=== PATIENT | female | born 1950 | race Caucasian/White ===

== ENCOUNTER 2018-01-08 16:26 | Observation (INO) | payer OTHER ==
[2018-01-08 18:13] LABS: BASO # 0.01 K/mm3 (0.0-2.0); BASO % 0.2 % (0.0-3.0); EOS # 0.2 (0.0-0.7); EOS % 3.4 % (1.5-5.0); GRAN # 2.89 (1.4-6.5); GRAN % 45.3 % (50.0-68.0); HEMOGLOBIN 11.3 g/dL (12.0-16.0); LYMPH # 2.9 (1.2-3.4); LYMPH % 45.5 % (22.0-35.0); MEAN CELL VOLUME 82.5 fl (80.0-105.0); MEAN CORPUSCULAR HEMOGLOBIN 27.2 pg (25.0-35.0); MEAN CORPUSCULAR HGB CONC 32.9 g/dl (31.0-37.0); MEAN PLATELET VOLUME 9.9 fl (7.0-11.0); MONO # 0.4 (0.1-0.6); MONO % 5.6 % (1.0-6.0); RBC 4.16 10^6/uL (3.5-6.1); RED CELL DISTRIBUTION WIDTH 14.5 % (11.5-14.5); WHITE BLOOD COUNT 6.4 10^3/ul (4.5-11.0)
[2018-01-08 18:14] LABS: ALB/GLOB RATIO 1.1 (1.1-1.8); ALT/SGPT 21 U/L (7-56); AST/SGOT 32 U/L (14-36); BLOOD UREA NITROGEN 20 mg/dL (7-21); CALCIUM 9.3 mg/dL (8.4-10.5); GFR AFRICAN-AMERICAN > 60; GFR NON-AFRICAN AMERICAN > 60; LIPASE 73 U/L (23-300)
[2018-01-08 18:25] LABS: B-TYPE NATRIURETIC PEPTIDE 285 pg/mL (0-450); TROPONIN I < 0.01 ng/mL
[2018-01-08 18:31] LABS: INR 1.03 (0.93-1.08); PARTIAL THROMBOPLASTIN TIME 30.4 Seconds (25.1-36.5); PROTHROMBIN TIME 11.7 SECONDS (9.4-12.5)
[2018-01-08] MEDS ORDERED: Iohexol 350 MG/100 ML VIAL ONE (18:35)
--- NOTE | 2018-01-08 18:54 | RAD ---
HISTORY: dizziness, shortness of breath COMPARISON: 01/22/2015. FINDINGS: LUNGS: The lungs are well inflated and clear. No focal consolidation. PLEURA: No significant pleural effusion identified, no pneumothorax apparent. CARDIOVASCULAR: Normal. OSSEOUS STRUCTURES: No significant abnormalities. VISUALIZED UPPER ABDOMEN: Normal. OTHER FINDINGS: None. IMPRESSION: No active pulmonary disease.
--- NOTE | 2018-01-08 20:35 | ED PDOC ---
Arrival/HPI - General Chief Complaint: Shortness Of Breath Time Seen by Provider: 01/08/18 16:43 Historian: Patient - History of Present Illness Narrative History of Present Illness (Text): 01/08/18 20:36 67-year-old female with a history of cancer presents today with chest pain and shortness of breath 4 days. Patient denies fevers or chills. Denies cough. Denies abdominal pain. Patient states she's had a slight increase in lower leg swelling from the thighs down. Patient states she has a history of left foot drop. Patient denies urinary symptoms. Denies nausea vomiting or diarrhea. Patient denies recent travel. Patient is on fentanyl patches at home for pain. Pts son states the patient is not ambulatory at home. Time/Duration: Other (4 days) Past Medical History - Provider Review Nursing Documentation Reviewed: Yes - Travel History Have you recently traveled outside [place] w/in the past 3 mons?: No - Infectious Disease Hx of Infectious Diseases: None - Tetanus Immunization Tetanus Immunization: Unknown - Cardiac Hx Cardiac Disorders: Yes Hx Hypertension: Yes - Pulmonary Hx Respiratory Disorders: No - Neurological Hx Neurological Disorder: Yes (headaches) - HEENT Hx HEENT Disorder: No - Renal Hx Renal Disorder: No - Endocrine/Metabolic Hx Endocrine Disorders: No - Hematological/Oncological Hx Blood Disorders: Yes Hx Cancer: Yes (Stage 4 Breast CA bilateral breasts) Other/Comment: mets to spine,skull, left leg and hips - Integumentary Hx Dermatological Disorder: No - Musculoskeletal/Rheumatological Hx Musculoskeletal Disorders: Yes Hx Arthritis: Yes (back and hips) Other/Comment: drop foot, left foot. Bone CA - Gastrointestinal Hx Gastrointestinal Disorders: Yes (constipation) - Genitourinary/Gynecological Hx Genitourinary Disorders: No - Psychiatric Hx Psychophysiologic Disorder: No Hx Substance Use: No - Surgical History Hx Angiogram: Yes Hx Breast Biopsy: Yes Hx Cardiac Catheterization: Yes - Anesthesia Hx Anesthesia: Yes Hx Anesthesia Reactions: No Hx Malignant Hyperthermia: No - Suicidal Assessment Feels Threatened In Home Enviroment: No Family/Social History - Physician Review Nursing Documentation Reviewed: Yes Family/Social History: Unknown Family HX Smoking Status: Never Smoked Hx Alcohol Use: No Hx Substance Use: No Allergies/Home Meds Allergies/Adverse Reactions: Allergies No Known Allergies Allergy (Verified 10/09/15 16:57) Home Medications: Home Meds Medication Instructions Recorded Confirmed Allopurinol 150 mg PO DAILY 01/22/15 01/22/15 Aspirin [Aspirin EC] 81 mg PO DAILY 01/22/15 01/22/15 Atenolol [Tenormin] 50 mg PO DAILY 01/22/15 01/22/15 Clopidogrel [Plavix] 75 mg PO DAILY 01/22/15 01/22/15 Escitalopram [Lexapro] 5 mg PO DAILY 01/22/15 01/22/15 Gabapentin 100 mg PO DAILY 01/22/15 01/22/15 Letrozole [Femara] 2.5 mg PO DAILY 01/22/15 01/22/15 Lisinopril 20 mg PO DAILY 01/22/15 01/22/15 Multivitamin and [id number] 1 tab PO DAILY 01/22/15 01/22/15 [Centrum Silver] Multivitamin/Iron/Folic Acid 1 mg PO DAILY 01/22/15 01/22/15 [Centrum Complete Multivit Tab] Simvastatin 40 mg PO DAILY 01/22/15 01/22/15 traMADol/Acetaminophen [Ultracet 1 tab PO TID 01/22/15 01/22/15 37.5/325 mg] Review of Systems - Review of Systems Constitutional: absent: Fatigue, Fevers ENT: absent: Sore Throat, Sinus Congestion Respiratory: SOB. absent: Cough Cardiovascular: Chest Pain. absent: Palpitations Gastrointestinal: absent: Abdominal Pain, Nausea, Vomiting Musculoskeletal: Arthralgias. absent: Back Pain, Neck Pain Skin: absent: Rash, Pruritis Neurological: Dizziness. absent: Headache Psychiatric: absent: Anxiety, Depression Physical Exam Vital Signs Reviewed: Yes Vital Signs Temp Pulse Resp BP Pulse Ox 01/08/18 17:52 20 96 01/08/18 16:26 97.7 F 65 18 147/90 98 Temperature: Afebrile Blood Pressure: Normal Pulse: Regular Respiratory Rate: Normal Appearance: Positive for: Well-Appearing, Non-Toxic, Comfortable Pain Distress: None Mental Status: Positive for: Alert and Oriented X 3 - Systems Exam Head: Present: Atraumatic Mouth: Present: Moist Mucous Membranes Neck: Present: Normal Range of Motion Respiratory/Chest: Present: Clear to Auscultation, Good Air Exchange. No: Respiratory Distress, Accessory Muscle Use, Wheezes, Rhonchi, Tachypneic Cardiovascular: Present: Regular Rate and Rhythm, Normal S1, S2. No: Murmurs Abdomen: No: Tenderness, Distention, Rebound, Guarding Back: Present: Normal Inspection. No: Midline Tenderness, Paraspinal Tenderness Upper Extremity: Present: Normal ROM Lower Extremity: Present: Edema, Tenderness, Capillary Refill < 2 s. No: Erythema, Neurovascularly Intact (left foot drop (chronic) ) Neurological: Present: Speech Normal Skin: Present: Warm, Dry, Normal Color. No: Rashes Psychiatric: Present: Alert, Oriented x 3 Medical Decision Making ED Course and Treatment: 01/08/18 20:01 67yr old female with cp and sob x 4 days. cbc; wnl cmp; wnl trop;wnl Dimer; + ekg; NSR at 70 b/m no st elevations, normal axis normal intervals. cxr; no infiltrate venous duplex; no dvt bilaterally; verbal report from security alarm technician. ct angio; r/o pe: FINDINGS: Pulmonary arteries: No filling defects are seen in the pulmonary arteries or in its visualized tributaries. Aorta: Mild intimal thickening of the aorta. No aortic dissection is seen. Lungs: Lungs overall clear. No focal lung consolidation, pulmonary infiltrates, no cavitary changes are seen. Pleural space: Unremarkable. No significant effusion. No pneumothorax. Heart: The cardiac chambers are mildly enlarged without pericardial thickening or effusion. No evidence of RV dysfunction. Thyroid: The visualized thyroid and the thoracic inlet appear normal. Bones/joints: The spine demonstrates moderate degenerative changes at multiple levels. No acute fracture. No dislocation. Soft tissues: Unremarkable. Lymph nodes: Bilateral hilar adenopathy is seen the soft tissue thickening of the axial interstitium of approximately. Slightly prominent nonspecific mediastinal nodes. Gallbladder and bile ducts: Cholelithiasis without evidence of cholecystitis. Other findings: Left lumpectomy scar is present a calcification measuring 2 cm with mild left retroareolar retraction. IMPRESSION: No PE or dissection. No acute process is present in the chest. Cholelithiasis without evidence of cholecystitis. Lumpectomy scar noted within the left breast. Please correlate clinically and consider sonographic and mammographic followup as an outpatient to exclude potential neoplasm. Bilateral nonspecific hilar and mediastinal adenopathy asa given pO all results discussed in depth with patient and family. pt reassessment; patient is nontoxic well appearing no distress with stable vital signs in no distress. speaking in full sentences. all aspects of this case were discussed the attending of record. Impression; chest pain, shortness of breath Admit to tele. dr. landis Reassessment Condition: Re-examined, Improved - Lab Interpretations Lab Results: 01/08/18 17:45 01/08/18 17:45 Lab Results 01/08/18 17:45: PT 11.7, INR 1.03, APTT 30.4, D-Dimer, Quantitative 307 H 01/08/18 17:45: WBC 6.4, RBC 4.16, Hgb 11.3 L, Hct 34.3 L, MCV 82.5, MCH 27.2, MCHC 32.9, RDW 14.5, Plt Count 234, MPV 9.9, Gran % 45.3 L, Lymph % (Auto) 45.5 H, [place] % (Auto) 5.6, Eos % (Auto) 3.4, Baso % (Auto) 0.2, Gran # 2.89, Lymph # (Auto) 2.9, [place] # (Auto) 0.4, Eos # (Auto) 0.2, Baso # (Auto) 0.01 01/08/18 17:45: Sodium 139, Potassium 4.9, Chloride 102, Carbon Dioxide 26, Anion Gap 16, BUN 20, Creatinine 0.6 L, Est GFR ( Amer) > 60, Est GFR ( Non-Af Amer) > 60, Random Glucose 120 H, Calcium 9.3, Total Bilirubin 0.2, AST 32, ALT 21, Alkaline Phosphatase 97, Lactate Dehydrogenase 602, Total Creatine Kinase 70, Troponin I < 0.01, NT-Pro-B Natriuret Pep 285, Total Protein 7.7, Albumin 4.0, Globulin 3.7, Albumin/Globulin Ratio 1.1, Lipase 73 - RAD Interpretation Radiology Orders: 01/08/18 16:59 CHEST PORTABLE [RAD] Stat 01/08/18 17:53 DUPLEX LOWER EXTRM VEIN BILAT [US] Stat 01/08/18 18:32 ANGIO CHEST PE PROTOCOL [CT] Stat Disposition/Present on Arrival - Present on Arrival Any Indicators Present on Arrival: No History of DVT/PE: No History of Uncontrolled Diabetes: No Urinary Catheter: No History of Decub. Ulcer: No History Surgical Site Infection Following: None - Disposition Have Diagnosis and Disposition been Completed?: Yes Diagnosis: Chest pain, Shortness of breath Disposition: HOSPITALIZED Disposition Time: 20:58 Patient Plan: Observation Condition: FAIR Discharge Instructions (ExitCare): Chest Pain (ED) Referrals: Delilah Polanco DO [Primary Care Provider] - Follow up with primary Forms: [employer] (Indonesian)
[2018-01-08 21:05] LABS: URINE BILIRUBIN NEGATIVE (NEGATIVE); URINE BLOOD NEGATIVE (NEGATIVE); URINE GLUCOSE (UA) NEGATIVE (NEGATIVE); URINE LEUKOCYTE ESTERASE MODERATE Leu/uL (NEGATIVE); URINE PROTEIN NEGATIVE mg/dL (<30 mg/dL); URINE UROBILINOGEN 0.2 E.U./dL (<1 E.U./dL)
[2018-01-08 21:10] LABS: URINE APPEARANCE CLEAR (CLEAR); URINE COLOR STRAW (YELLOW)
[2018-01-08 21:21] LABS: URINE EPITHELIAL CELLS 0 - 2 /hpf (0-5); URINE RBC 0 - 2 /hpf (0-2); URINE WBC 20 - 25 /hpf (0-6)
[2018-01-08 21:22] LABS: URINE BACTERIA MOD (NEG)
[2018-01-08] MEDS ORDERED: Morphine 15 mg SR Tab PO SCH (22:00)
[2018-01-09 00:39] VITALS: BMI 28.3
[2018-01-09] MEDS: Pantoprazole 40 mg EC Tab PO SCH (06:36)
[2018-01-09 07:25] LABS: TROPONIN I < 0.01 ng/mL
[2018-01-09 07:33] LABS: LDL CHOLESTEROL 53 mg/dL (0-129)
[2018-01-09 07:34] LABS: FREE T4 1.06 ng/dL (0.78-2.19)
[2018-01-09 07:41] LABS: ALB/GLOB RATIO 1.1 (1.1-1.8); ALBUMIN 3.4 g/dL (3.0-4.8); ALT/SGPT 29 U/L (7-56); AST/SGOT 22 U/L (14-36); BLOOD UREA NITROGEN 18 mg/dL (7-21); CALCIUM 8.4 mg/dL (8.4-10.5); GFR AFRICAN-AMERICAN > 60; GFR NON-AFRICAN AMERICAN > 60; HDL CHOLESTEROL 33 mg/dL (29-60)
--- NOTE | 2018-01-09 08:10 | CT ---
PROCEDURE: CT Chest with contrast (Pulmonary Angiogram) HISTORY: cp/sob COMPARISON: None available. TECHNIQUE: Axial computed tomography images were obtained of the chest in the pulmonary arterial phase of enhancement. Coronal and sagittal reformatted images were created and reviewed. Intravenous contrast dose: 100 cc of Omni 350 Radiation dose: Total exam DLP = 492 mGy-cm. This CT exam was performed using one or more of the following dose reduction techniques: Automated exposure control, adjustment of the mA and/or kV according to patient size, and/or use of iterative reconstruction technique. FINDINGS: PULMONARY ARTERIES: Unremarkable. No pulmonary embolism. AORTA: No acute findings. No thoracic aortic aneurysm. LUNGS: Unremarkable. No nodule, mass or pulmonary consolidation. PLEURAL SPACES: Unremarkable. No effusion or pneuomothorax. HEART: Unremarkable. No cardiomegaly. No significant pericardial effusion. LYMPH NODES: Mildly enlarged hilar lymph nodes are seen BONES, CHEST WALL: Unremarkable. No fracture or destructive lesion OTHER FINDINGS: Gallstones are seen. No evidence of inflammation The report concurs with the preliminary [facility] report IMPRESSION: No evidence of pulmonary embolus. Hilar adenopathy
[2018-01-09] MEDS: Morphine 30 mg SR Tab PO SCH ×2 (10:42→21:28)
--- NOTE | 2018-01-09 10:57 | US ---
HISTORY: Leg pain and swelling. Evaluate for DVT PHYSICIAN(S): Shola Rosa MD. TECHNIQUE: Duplex sonography and color-flow Doppler with graded compression were used to evaluate the deep venous systems of both lower extremities. The exam is limited by body habitus and edema. The tibial veins are not well seen FINDINGS: The visualized deep venous systems of both lower extremities are sonographically normal and compressible. Normal wave forms and augmentation are seen. There is no sonographic evidence for deep venous thrombosis in the visualized segments of both lower extremities. IMPRESSION: No sonographic evidence for deep venous thrombosis in the visualized segments of both lower extremities. Limited study.
--- NOTE | 2018-01-09 13:39 | HP ---
HISTORY OF PRESENT ILLNESS: The patient is a 67-year-old female with history of known metastatic breast CA. Came to emergency room because of shortness of breath and chest discomfort. According to son who is by the bedside that he hears her whistling especially at nighttime, gets short of breath. The patient is not very ambulatory. She is bed bound and ambulate with a wheelchair. Does complain of generalized body aches and pain. No history of fever or chills. No history of hemoptysis. No hematemesis. PAST MEDICAL HISTORY: Significant for, 1. CA breast with mets to the liver. 2. History of coronary artery disease. 3. Hypertension. 4. Hyperlipidemia. ALLERGIES: SHE IS NOT ALLERGIC TO ANY MEDICATION. MEDICATION AT HOME: She is on simvastatin 40 mg daily, Zofran p.r.n., morphine extended release 50 mg twice a day, Femara 2.5 daily, gabapentin, Lexapro, Plavix 75 daily, atenolol 50 mg daily, aspirin 81 daily, allopurinol 150 daily and tramadol. REVIEW OF SYSTEMS: Significant for generalized body aches and pain and intermittent shortness of breath. PHYSICAL EXAMINATION: GENERAL: She is awake, alert, oriented, communicative, does not look in any distress. VITAL SIGNS: She is afebrile, pulse 60, respirations 18, blood pressure 139/59. LUNGS: Bilateral good airflow. No rhonchi or crackle. HEART: S1 and S2 audible. ABDOMEN: Soft, nontender. No rebound. No guarding. NEUROLOGICAL: The patient is awake, alert, oriented, communicative. LABORATORY EXAM: WBC 6.5, hemoglobin 11.3, hematocrit 34.3, platelets 234. PT 11.7, INR 1.03, D-dimer 307. Chemistry: Sodium 137, potassium 4.3, chloride 104, CO2 of 27, BUN 18, creatinine 0.7, blood sugar of 127, triglyceride 277, total cholesterol 120. Urinalysis shows moderate leukocyte, wbc is 20-25. Echocardiogram is pending. CT angio negative for pulmonary embolism. Bilateral leg Doppler negative for DVT. X-ray chest shows no active pulmonary disease. ASSESSMENT: 1. Noncardiac chest pain. 2. History of metastatic breast cancer. 3. Intermittent shortness of breath. 4. Bilateral leg swelling. PLAN: Currently, the patient is on aspirin 81 daily. She is on Femara. We will start her on IV Lasix and order for the DANIEL stocking. We will follow up echocardiogram and decide about her discharge home on diuretic and inhaler. Kimberli Hernandez MD
[2018-01-09] MEDS: Albuterol-Ipratrop 3 mg / 0.5 (3 ml) UD IH SCH ×2 (13:51→19:42)
--- NOTE | 2018-01-09 19:07 | CARD ---
APPROVED REPORT EKG Measurement Heart [id number] <Conclusion> Normal sinus rhythm Normal ECG
[2018-01-10] MEDS: Albuterol-Ipratrop 3 mg / 0.5 (3 ml) UD IH SCH ×3 (01:12→13:19)
[2018-01-10 05:59] VITALS: O2SAT 95
[2018-01-10] MEDS ORDERED: Morphine 4 mg/ml ISec IVP ONE (06:09)
[2018-01-10] MEDS: Pantoprazole 40 mg EC Tab PO SCH (06:16)
[2018-01-10 06:43] LABS: BASO # 0.01 K/mm3 (0.0-2.0); BASO % 0.2 % (0.0-3.0); EOS # 0.2 (0.0-0.7); EOS % 2.6 % (1.5-5.0); GRAN # 2.95 (1.4-6.5); GRAN % 47.8 % (50.0-68.0); LYMPH # 2.5 (1.2-3.4); LYMPH % 40.8 % (22.0-35.0); MEAN CELL VOLUME 83.1 fl (80.0-105.0); MEAN CORPUSCULAR HEMOGLOBIN 26.8 pg (25.0-35.0); MEAN CORPUSCULAR HGB CONC 32.3 g/dl (31.0-37.0); MEAN PLATELET VOLUME 9.8 fl (7.0-11.0); MONO # 0.5 (0.1-0.6); MONO % 8.6 % (1.0-6.0); RBC 3.73 10^6/uL (3.5-6.1); RED CELL DISTRIBUTION WIDTH 14.8 % (11.5-14.5); WHITE BLOOD COUNT 6.2 10^3/ul (4.5-11.0)
[2018-01-10 06:46] LABS: BLOOD UREA NITROGEN 20 mg/dL (7-21); CALCIUM 8.5 mg/dL (8.4-10.5); GFR AFRICAN-AMERICAN > 60; GFR NON-AFRICAN AMERICAN > 60
--- NOTE | 2018-01-10 07:50 | CP.PCM.PN ---
Subjective - Date & Time of Evaluation Date of Evaluation: 01/10/18 Time of Evaluation: 06:35 - Subjective Subjective: Awake, pain all over body, no distress, no shortness of breath Reason for consult and follow up: Cardiac evaluation, chest pain, history of metastatic breast cancer Seen and examined by me and Dr. Rodriguez Objective - Vital Signs/Intake and Output Vital Signs (last 24 hours): Temp Pulse Resp BP Pulse Ox 97.8 F 75 20 134/67 95 01/10/18 05:58 01/10/18 05:59 01/10/18 05:58 01/10/18 05:58 01/10/18 05:58 Intake and Output: 01/10/18 01/10/18 06:59 18:59 Intake Total 120 Output Total 750 Balance -630 - Medications Medications: Current Medications Acetaminophen (Tylenol 325mg Tab) 650 mg PO Q4 PRN PRN Reason: Fever >100.4 F Acetaminophen (Tylenol 325mg Tab) 650 mg PO Q4 PRN PRN Reason: Pain, moderate (4-7) Albuterol/Ipratropium (Duoneb 3 Mg/0.5 Mg (3 Ml) Ud) 3 ml IH [id number] [facility] Last Admin: 01/10/18 07:24 Dose: 3 ml Allopurinol (Zyloprim) 150 mg PO DAILY [facility] Last Admin: 01/09/18 10:40 Dose: 150 mg Aspirin (Ecotrin) 81 mg PO DAILY [facility] Last Admin: 01/09/18 10:41 Dose: 81 mg Atenolol (Tenormin) 50 mg PO DAILY [facility] Last Admin: 01/09/18 10:41 Dose: 50 mg Atorvastatin Calcium (Lipitor) 20 mg PO DIN [facility] Last Admin: 01/09/18 17:48 Dose: 20 mg Clopidogrel Bisulfate (Plavix) 75 mg PO DAILY [facility] Last Admin: 01/09/18 10:40 Dose: 75 mg Escitalopram Oxalate (Lexapro) 5 mg PO DAILY [facility] Last Admin: 01/09/18 10:41 Dose: 5 mg Furosemide (Lasix) 20 mg IVP DAILY [facility] Gabapentin (Neurontin) 100 mg PO DAILY [facility] PRN Reason: Protocol Last Admin: 01/09/18 10:41 Dose: 100 mg Letrozole (Femara) 2.5 mg PO DAILY [facility] Last Admin: 01/09/18 14:40 Dose: 2.5 mg Lisinopril (Zestril) 20 mg PO DAILY [facility] Last Admin: 01/09/18 10:40 Dose: 20 mg Morphine Sulfate (Morphine Extended Release Tab) 15 mg PO Q12 [facility] Last Admin: 01/09/18 21:28 Dose: 15 mg Ondansetron HCl (Zofran Inj) 4 mg IVP Q6H PRN PRN Reason: Nausea/Vomiting Pantoprazole Sodium (Protonix Ec Tab) 40 mg PO 0630 [facility] Last Admin: 01/10/18 06:16 Dose: 40 mg - Labs Labs: 01/10/18 06:15 01/10/18 06:15 PT 11.7 SECONDS (9.4-12.5) 01/08/18 17:45 INR 1.03 (0.93-1.08) 01/08/18 17:45 APTT 30.4 Seconds (25.1-36.5) 01/08/18 17:45 - Constitutional Appears: No Acute Distress - Eye Exam Pupil Exam: NORMAL ACCOMODATION - ENT Exam ENT Exam: Mucous Membranes Moist - Respiratory Exam Respiratory Exam: Decreased Breath Sounds, NORMAL BREATHING PATTERN - Cardiovascular Exam Cardiovascular Exam: +S1, +S2 - GI/Abdominal Exam GI & Abdominal Exam: Soft, Normal Bowel Sounds - Extremities Exam Extremities Exam: Normal Capillary Refill - Neurological Exam Neurological Exam: Alert, Awake, Oriented x3 - Psychiatric Exam Psychiatric exam: Anxious - Skin Skin Exam: Intact, Normal Color, Warm Assessment and Plan - Assessment and Plan (Free Text) Assessment: A 67 year old female who presented to ER with chest pain and shortness of breath for 4 days. She has history of metastatic breast cancer to liver ,on fentanyl patch for pain. history of hypertension, hyperlipidemia, coronary artery disease. Plan: Negative troponin 12 lead EKG -normal sinus rhythm- 70's No evidence of myocardial ischemia Will order ECHO to evaluate LV function Non-cardiac chest pain On ASA 81 mg daily,Tenormin 50 mg daily, lipitor 20 mg daily,Plavix 75 mg daily, Lasix 20 mg daily, Lisinopril 20 mg daily Continue current medications Pain management Continue current treatment Will follow up Plan and treatment discussed with Dr. Rodriguez
--- NOTE | 2018-01-10 08:07 | CON ---
DATE: 01/09/2018 REASON FOR CONSULTATION: Cardiac evaluation, admitted with chest pain, history of metastatic breast CA. HISTORY OF PRESENT ILLNESS: This is a 67-year-old female with past medical history significant for breast CA with metastasis to the bone, complaining of progressive worsening shortness of breath. Denies any cough, but complained of pain all over the body and swelling of the leg, so came to the emergency room. Denies any chest pain. PAST MEDICAL HISTORY: Significant for hypertension, hyperlipidemia, metastatic breast cancer. No documented history of coronary artery disease. History of stage IV breast CA, being followed at [facility] in [place]. ALLERGY: NO KNOWN DRUG ALLERGY. CURRENT MEDICATION: The patient at home taking simvastatin, Zofran, lisinopril, Femara, clopidogrel, atenolol, aspirin, allopurinol. REVIEW OF SYSTEMS: As per HPI. PAST SURGICAL HISTORY: Significant for removal of a cyst from the thigh way back 20 years ago. PHYSICAL EXAMINATION: VITAL SIGNS: Height of the patient is 5 feet 4 inches. Weight of the patient 185 pounds, body mass index 31.8 kg/m2. Temperature afebrile, heart rate 58, blood pressure 130/58. HEENT: PERRLA, intact. NECK: Supple. No carotid bruit or thyromegaly. CHEST: Clear to auscultation. HEART: S1 and S2 regular. ABDOMEN: Soft. EXTREMITIES: Clubbing and cyanosis negative. LABORATORY DATA: Blood workup: WBC , hemoglobin , hematocrit 34.3, platelet count 234. Chemistry shows sodium , potassium 4.3, chloride 104, carbon dioxide 27, anion gap of 11, BUN 18, creatinine 0.7. Troponin 0.01, negative. EKG showed normal sinus rhythm. No acute ST-T changes noted. Troponin remains negative. IMPRESSION: Shortness of breath, metastatic disease from the breast cancer. No definite history of coronary artery disease. The patient is on Plavix. The patient is not sure. We will get more information of why the patient is on Plavix. CAT scan of the chest shows no definite pulmonary embolism, hilar lymphadenopathy. Chest x-ray showed no active pulmonary disease. No consolidation. Mild edema. Metastatic breast cancer to the bone. Mild anemia. RECOMMENDATION: We will get echo to assess LV function, lipid profile, TSH, hemoglobin A1c and we will follow with you. Further recommendation will be made after initial workup. We will follow with you. We will get in touch with the family to get more information the patient has whether coronary artery disease, the patient is not sure, but on Plavix. As mentioned, we will get echo to assess LV function. We will give 1 dose of Lasix to get more diuresed and we will observe closely. Thank you, Dr. Hernandez, for providing us the opportunity in taking care of the patient, Terry Blackwoodreshi. Stacie Rodriguez MD
[2018-01-10] MEDS: Morphine 30 mg SR Tab PO SCH (09:52)
--- NOTE | 2018-01-10 09:53 | CARD ---
APPROVED REPORT EXAM: Two-dimensional and M-mode echocardiogram with Doppler and color Doppler. INDICATION SOB/LVFX 2D DIMENSIONS Left Atrium (2D)4.1 (1.6-4.0cm)IVSd1.0 (0.7-1.1cm) LVDd3.9 (3.9-5.9cm)PWd1.1 (0.7-1.1cm) LVDs2.7 (2.5-4.0cm)FS (%) 30.8 % LVEF (%)59.1 (>50%) M-Mode DIMENSIONS Aortic Root3.00 (2.2-3.7cm)Aortic Cusp Exc.1.50 (1.5-2.0cm) Aortic Valve AoV Peak Dnclwwhh918.0cm/Doris Peak GR.9mmHg Mitral Valve MV E Gexhirif37.6cm/sMV A Uadgxcmx455.0cm/sE/A ratio0.9 TDI Lateral E' Peak V9.55cm/sMedial E' Peak V12.90cm/sE/Lateral E'10.0 E/Medial E'7.4 Tricuspid Valve TR Peak [id number]/sRAP [id number] Peak Gr.23mmHg [id number] LEFT VENTRICLE The left ventricle is normal size. There is normal left ventricular wall thickness. The left ventricular function is normal.EF-60% There is normal LV segmental wall motion. Transmitral Doppler flow pattern is Grade III-reversible restrictive diastolic dysfunction. No left ventricle thrombus noted on this study. There is no ventricular septal defect visualized. There is no left ventricular aneurysm. There is no mass noted in the left ventricle. RIGHT VENTRICLE The right ventricle is normal size. There is normal right ventricular wall thickness. The right ventricular systolic function is normal. ATRIA The left atrium is borderline dilated. The right atrium size is normal. The interatrial septum is intact with no evidence for an atrial septal defect. AORTIC VALVE The aortic valve is thickened but opens well. trivial AR There is no aortic valvular stenosis. There is no aortic valvular vegetation. MITRAL VALVE The mitral valve is thickened but opens well. Mitral regurgitation is trace. There is no mitral valve stenosis. There is no evidence of mitral valve prolapse. TRICUSPID VALVE The tricuspid valve leaflets are thickened , but open well. There is trace tricuspid regurgitation.RVSP-33 mmof Hg. There is no tricuspid valve stenosis. PULMONIC VALVE The pulmonic valve is not well visualized. GREAT VESSELS The aortic root is normal in size. The ascending aorta is normal in size. The pulmonary artery is normal. The IVC was not visualized. PERICARDIAL EFFUSION There is no pleural effusion. There is no pericardial effusion. <Conclusion> The left ventricle is normal size. There is normal left ventricular wall thickness. The left ventricular function is normal.EF-60% trivial AR Mitral regurgitation is trace. There is trace tricuspid regurgitation.RVSP-33 mmof Hg. The IVC was not visualized. There is no pericardial effusion.
[2018-01-10 12:09] VITALS: BP 133/57; PULSE 61; RESP 17; TEMP 98.3
--- NOTE | 2018-01-11 15:13 | DS ---
HISTORY OF PRESENT ILLNESS: The patient is a 67-year-old, seen and examined, doing better. No nausea or vomiting. No diarrhea. Has generalized body aches and pain. PHYSICAL EXAMINATION: VITAL SIGNS: She is afebrile, pulse 61, respirations 17, blood pressure 133/57. LUNGS: Bilateral good airflow. No rhonchi or crackle. HEART: S1 and S2 audible. ABDOMEN: Soft, obese, nontender. No rebound. No guarding. NEUROLOGICAL: She is awake, alert, oriented, able to communicate. LABORATORY EXAM: WBC 6.2, hemoglobin 10, hematocrit 31, platelet of 208. Chemistry: Sodium 137, potassium 4.6, chloride 102, CO2 of 26, BUN 20, creatinine 0.7, blood sugar of 154. ASSESSMENT: 1. Non exertional dyspnea. 2. Intermittent bronchospasm. 3. Metastatic breast cancer. 4. Deconditioning and difficulty walking. 5. Hyperlipidemia. 6. Neuropathy. PLAN: Patient being discharged home on nebulizer treatment. Her CT angio was negative for PE. Bilateral leg Doppler negative for DVT. Echocardiogram is unremarkable. So she be going home on Lasix 20 mg daily and she will continue her other medication including Lexapro, Plavix, Tenormin, aspirin, allopurinol, simvastatin, morphine, lisinopril, gabapentin, multivitamin and she will follow with her PMD and she will follow up with oncologist. Kimberli Hernandez MD
== END 2018-01-10 17:28 | disposition home health service (06) ==
LOC: ED 16:26 → ERH 21:06 → 2RSO 23:07
PROVIDERS: ADMIT Internal Medicine; ATTEND Internal Medicine
DX: I25.10 Atherosclerotic heart disease of native coronary artery without angina pectoris (principal); I10 Essential (primary) hypertension; E78.5 Hyperlipidemia, unspecified; D64.9 Anemia, unspecified; C78.7 Secondary malignant neoplasm of liver and intrahepatic bile duct; C79.51 Secondary malignant neoplasm of bone; Z85.3 Personal history of malignant neoplasm of breast; Z74.01 Bed confinement status
CPT/HCPCS: 36415; 71045; 71275; 80048; 80053; 80061; 81001; 82550; 83036; 83615; 83690; 83735; 83880; 84100; 84439; 84443; 84484; 85025; 85378; 85610; 85730; 87040; 87086; 93005; 93306; 93970; 94640; 94760; 99285; G0378; J1940; J2270; Q9967

== ENCOUNTER 2018-12-22 17:02 | Emergency (ER) | payer OTHER ==
[2018-12-22 17:21] VITALS: BMI 23.6
--- NOTE | 2018-12-22 17:24 | ED PDOC ---
Arrival/HPI <Kyleigh Tenorio PA-C - Last Filed: 12/23/18 14:24> - History of Present Illness Narrative History of Present Illness (Text): 68 yr old F w/ hx of metastatic breast CA, CAD w/ stents x2 and 2 weeks s/p stent placement at [facility] p/w RLQ abdominal pain x3 days and RLE swelling x3 days. She notes stent site was to her R radial artery site and not her groin. She notes that she is currently on plavix and ASA. She denies any fall or trauma. No urinary complaints. No back pain or chest pain or shortness of breath. No constipation or diarrhea. No vomiting. No dark or bloody stool. She denies taking any medications for the pain. She denies any pelvic pain or vaginal d/c. No rash. No fever, chills or night sweats. <Chinmay Tovar - Last Filed: 12/23/18 17:40> - General Chief Complaint: Female Genitourinary Time Seen by Provider: 12/22/18 17:09 Past Medical History - Infectious Disease Hx of Infectious Diseases: None - Tetanus Immunization Tetanus Immunization: Unknown - Cardiac Hx Cardiac Disorders: Yes Hx Hypertension: Yes - Pulmonary Hx Respiratory Disorders: No - Neurological Hx Neurological Disorder: Yes (headaches) - HEENT Hx HEENT Disorder: No - Renal Hx Renal Disorder: No - Endocrine/Metabolic Hx Endocrine Disorders: No - Hematological/Oncological Hx Blood Disorders: Yes Hx Cancer: Yes (Stage 4 Breast CA bilateral breasts) Other/Comment: mets to spine,skull, left leg and hips - Integumentary Hx Dermatological Disorder: No - Musculoskeletal/Rheumatological Other/Comment: drop foot, left foot - Gastrointestinal Hx Gastrointestinal Disorders: Yes (constipation) - Genitourinary/Gynecological Hx Genitourinary Disorders: No - Psychiatric Hx Psychophysiologic Disorder: No Hx Substance Use: No - Surgical History Hx Cardiac Catheterization: Yes - Anesthesia Hx Anesthesia: Yes Hx Anesthesia Reactions: No Hx Malignant Hyperthermia: No - Suicidal Assessment Feels Threatened In Home Enviroment: No <Chinmay Tovar - Last Filed: 12/23/18 17:40> Family/Social History Family/Social History: Unknown Family HX Smoking Status: Never Smoked Hx Alcohol Use: No Hx Substance Use: No <Chinmay Tovar - Last Filed: 12/23/18 17:40> Allergies/Home Meds <Kyleigh Tenorio PA-C - Last Filed: 12/23/18 14:24> <Chinmay Tovar - Last Filed: 12/23/18 17:40> Allergies/Adverse Reactions: Allergies No Known Allergies Allergy (Verified 10/09/15 16:57) Home Medications: Home Meds Medication Instructions Recorded Confirmed Allopurinol 150 mg PO DAILY 01/22/15 01/10/18 Aspirin [Aspirin EC] 81 mg PO DAILY 01/22/15 01/10/18 Atenolol [Tenormin] 50 mg PO DAILY 01/22/15 01/10/18 Clopidogrel [Plavix] 75 mg PO DAILY 01/22/15 01/10/18 Escitalopram [Lexapro] 5 mg PO DAILY 01/22/15 01/10/18 Gabapentin 100 mg PO DAILY 01/22/15 01/10/18 Letrozole [Femara] 2.5 mg PO DAILY 01/22/15 01/10/18 Lisinopril 20 mg PO DAILY 01/22/15 01/10/18 Multivitamin and [id number] 1 tab PO DAILY 01/22/15 01/22/15 [Centrum Silver] Multivitamin/Iron/Folic Acid 1 mg PO DAILY 01/22/15 01/22/15 [Centrum Complete Multivit Tab] Simvastatin 40 mg PO DAILY 01/22/15 01/10/18 traMADol/Acetaminophen [Ultracet 1 tab PO TID 01/22/15 01/22/15 37.5/325 mg] Albuterol/Ipratropium [Duoneb 3 Q6 PRN 01/10/18 mg/0.5 mg (3 ml) UD] Furosemide [Lasix] 20 mg PO DAILY 01/10/18 01/10/18 Review of Systems - Review of Systems Constitutional: absent: Fatigue, Weight Change Eyes: absent: Vision Changes ENT: absent: Hearing Changes Respiratory: absent: SOB, Cough, Sputum Cardiovascular: absent: Chest Pain, Palpitations, Edema Gastrointestinal: Abdominal Pain (rlq) Genitourinary Female: absent: Dysuria, Frequency, Hematuria Musculoskeletal: absent: Arthralgias, Back Pain Skin: absent: Rash, Pruritis, Skin Lesions Neurological: absent: Headache, Dizziness Endocrine: absent: Diaphoresis Hemo/Lymphatic: absent: Adenopathy Psychiatric: absent: Anxiety, Depression <Chinmay Tovar - Last Filed: 12/23/18 17:40> Physical Exam Vital Signs Temp Pulse Resp BP Pulse Ox 12/23/18 07:35 98 F 85 19 126/59 L 97 12/23/18 05:00 73 18 151/72 H 100 12/23/18 01:00 78 18 147/81 100 12/22/18 23:02 75 18 150/78 100 12/22/18 17:02 97.6 F 75 18 160/69 H 100 <Kyleigh Tenorio PA-C - Last Filed: 12/23/18 14:24> Appearance: Positive for: Well-Appearing, Non-Toxic, Comfortable Pain Distress: Mild Mental Status: Positive for: Alert and Oriented X 3 - Systems Exam Head: Present: Atraumatic, Normocephalic Pupils: Present: PERRL Extroacular Muscles: Present: EOMI Conjunctiva: Present: Normal Mouth: Present: Moist Mucous Membranes Neck: Present: Normal Range of Motion. No: Meningeal Signs, MIDLINE TENDERNESS Respiratory/Chest: Present: Clear to Auscultation, Good Air Exchange. No: Respiratory Distress, Accessory Muscle Use Cardiovascular: Present: Regular Rate and Rhythm, Normal S1, S2. No: Murmurs Abdomen: Present: Tenderness (RLQ). No: Distention, Rebound, Guarding Back: Present: Normal Inspection. No: CVA Tenderness, Midline Tenderness Upper Extremity: Present: Normal Inspection, Normal ROM, NORMAL PULSES. No: Cyanosis, Edema Lower Extremity: Present: Normal Inspection, NORMAL PULSES, Neurovascularly Intact. No: Edema, CALF TENDERNESS Neurological: Present: GCS=15, CN II-XII Intact, Speech Normal Skin: Present: Warm, Dry, Normal Color. No: Rashes Psychiatric: Present: Alert, Oriented x 3, Normal Insight <Chinmay Tovar - Last Filed: 12/23/18 17:40> Medical Decision Making - Lab Interpretations Lab Results: pO2 31 mm/Hg (30-55) 12/22/18 17:55 VBG pH 7.33 (7.32-7.43) 12/22/18 17:55 VBG pCO2 43.0 (40-60) 12/22/18 17:55 VBG HCO3 22.7 mmol/l (21-28) 12/22/18 17:55 VBG Total CO2 24.0 mmol.L (22-28) 12/22/18 17:55 VBG O2 Sat (Calc) 67.5 % (40-65) H 12/22/18 17:55 VBG Base Excess -3.2 mmol/L (0.0-2.0) L 12/22/18 17:55 VBG Potassium 4.5 mmol/L (3.6-5.2) 12/22/18 17:55 Sodium 135.0 mmol/L (132-148) 12/22/18 17:55 Chloride 104.0 mmol/L (98-107) 12/22/18 17:55 Glucose 116 mg/dl (65-105) H 12/22/18 17:55 Lactate 1.2 mmol/L (0.7-2.1) 12/22/18 17:55 FiO2 21.0 % 12/22/18 17:55 PT 13.4 SECONDS (9.4-12.5) H 12/22/18 17:50 INR 1.21 12/22/18 17:50 APTT 32.3 Seconds (26.9-38.3) 12/22/18 17:50 Total Bilirubin 0.2 mg/dL (0.2-1.3) 12/22/18 17:50 AST 46 U/L (14-36) H D 12/22/18 17:50 ALT 12 U/L (7-56) 12/22/18 17:50 Alkaline Phosphatase 96 U/L (38-126) 12/22/18 17:50 Total Protein 8.1 g/dL (5.8-8.3) 12/22/18 17:50 Albumin 4.0 g/dL (3.0-4.8) 12/22/18 17:50 Globulin 4.1 gm/dL 12/22/18 17:50 Albumin/Globulin Ratio 1.0 (1.1-1.8) L 12/22/18 17:50 Lipase 54 U/L (23-300) 12/22/18 17:50 Urine Color Yellow (YELLOW) 12/22/18 19:00 Urine Appearance Clear (CLEAR) 12/22/18 19:00 Urine pH 6.5 (4.7-8.0) 12/22/18 19:00 Ur Specific Orient <= 1.005 (1.005-1.035) 12/22/18 19:00 Urine Protein Negative mg/dL (<30 mg/dL) 12/22/18 19:00 Urine Glucose (UA) Negative mg/dL (NEGATIVE) 12/22/18 19:00 Urine Ketones Negative mg/dL (NEGATIVE) 12/22/18 19:00 Urine Blood Negative (NEGATIVE) 12/22/18 19:00 Urine Nitrate Negative (NEGATIVE) 12/22/18 19:00 Urine Bilirubin Negative (NEGATIVE) 12/22/18 19:00 Urine Urobilinogen 0.2 E.U./dL (<1 E.U./dL) 12/22/18 19:00 Ur Leukocyte Esterase Small Tomas/uL (NEGATIVE) H 12/22/18 19:00 Urine RBC TEST NOT PERFORMED 12/22/18 19:00 Urine WBC 5 - 10 /hpf (0-6) H 12/22/18 19:00 Ur Epithelial Cells 10 - 12 /hpf (0-5) H 12/22/18 19:00 - RAD Interpretation Radiology Orders: 12/22/18 17:17 ABD & PELVIS IV CONTRAST ONLY [CT] Stat DUPLEX LOWER EXTRM VEIN BILAT [US] Stat <Jona ESCALANTE,Kyleigh Guardado - Last Filed: 12/23/18 14:24> ED Course and Treatment: 68 yr old F w/ hx of metastatic breast CA, CAD w/ stents x2 and 2 weeks s/p stent placement at [facility] p/w RLQ abdominal pain x3 days and RLQ swelling x3 days. No fall or trauma. No pain at cath site. No CP or SOB. ?DVT on AC given RLE swelling. Good n/v status in distal b/l LE. Strong DP pulse. Will CT scan and seek duplex. Pending imaging and labs. 12/22/18 18:31 Ultrasound is negative, no DVT present. 12/22/18 19:[address] scan largely unremarkable, no lesions noted. No RUQ pain re-exam No RLQ pain, no back or back pain or CVAT no CP or SOB Labs largely unremarkable pending UA results 12/22/18 19:51 uti on labs, shared results Denies any current pain given abx script, return indications and f/u, pt agreeable to plan - RAD Interpretation Radiology Orders: 12/22/18 17:17 ABD & PELVIS IV CONTRAST ONLY [CT] Stat DUPLEX LOWER EXTRM VEIN BILAT [US] Stat <Chinmay Tovar - Last Filed: 12/23/18 17:40> Disposition/Present on Arrival - Notes Notes (Text): 12/23/18 12:30 CT A/P : IMPRESSION: There is wall thickening of the gastric fundus which could be due to incomplete distention however possibility of a gastritis or other intrinsic/invasive wall lesion including but not limited to gastric carcinoma not excluded. Slight thickening of the rectal wall; and infiltrative wall lesion in this location should be excluded as well. Mild fatty hepatic infiltration. There are sclerotic lesions seen within the right aspect of the sacrum and left iliac bone of uncertain etiology. Rule out sclerotic metastases. Follow-up bone scan recommended. Pt called, she states that she would prefer that we call her son as she speaks very little tamazight and she would prefer that we explain the CT results to him. Pt's son called, no answer, message left to call back the ER. Pt called again, asked to have her son call back the ER, ER phone number provided. Will need a 2nd call to the son and the pt. <Kyleigh Tenorio PA-C - Last Filed: 12/23/18 14:24> - Present on Arrival Any Indicators Present on Arrival: No History of DVT/PE: No History of Uncontrolled Diabetes: No Urinary Catheter: No History of Decub. Ulcer: No History Surgical Site Infection Following: None - Disposition Have Diagnosis and Disposition been Completed?: Yes Disposition Time: 19:52 <Chinmay Tovar - Last Filed: 12/23/18 17:40> - Disposition Diagnosis: UTI (urinary tract infection), Abdominal pain Disposition: HOME/ ROUTINE Condition: STABLE Discharge Instructions (ExitCare): Urinary Tract Infection, Adult (DC), Acute Abdomen (Belly Pain), Adult (DC) Additional Instructions: FOLLOW UP WITH YOUR PRIMARY CARE DOCTOR, STOMACH DOCTOR, AND A BONE DOCTOR FOR YOUR CHRONIC BACK ISSUES SEEN ON CAT SCAN. ALSO FOLLOW UP WITH A UROLOGIST FOR YOU UTI PETER DICKINSON, thank you for letting us take care of you today. Your provider was Chinmay Tovar and you were treated for PELVIC PAIN. The emergency medical care you received today was directed at your acute symptoms. If you were prescribed any medication, please fill it and take as directed. It may take several days for your symptoms to resolve. Return to the Emergency Department if your symptoms worsen, do not improve, or if you have any other problems. Please contact your doctor or call one of the physicians/clinics you have been referred to that are listed on the Patient Visit Information form that is included in your discharge packet. Bring any paperwork you were given at discharge with you along with any medications you are taking to your follow up visit. Our treatment cannot replace ongoing medical care by a primary care provider outside of the emergency department. Thank you for allowing the [facility] team to be part of your care today. If you had an X-Ray or CT scan: A Radiologist will review the ED reading if any change in treatment is needed we will contact you. If you had a blood, urine, or wound culture: It will take several days for the results, if any change in treatment is needed we will contact you. If you had an STI test: It will take 48 hours for the results. Please call after 1 week if you have not heard back. Prescriptions: Nitrofurantoin Macrocrystals [Macrobid] 100 mg PO BID 5 Days #10 cap Referrals: Delilah Polanco DO [Family Provider] - Follow up with primary Hernan Hernadez MD [Staff Provider] - Follow up with primary [facility] [Outside] - Follow up with primary [facility] [place] [Outside] - Follow up with primary [facility] [Outside] - Follow up with primary Rudi Varela MD [Staff Provider] - Follow up with primary Hernando Dang MD [Staff Provider] - Follow up with primary Forms: [facility] (I[place]ic)
[2018-12-22 18:08] LABS: BASO # 0.02 K/mm3 (0.0-2.0); BASO % 0.3 % (0.0-3.0); EOS # 0.3 (0.0-0.7); EOS % 3.8 % (1.5-5.0); HEMOGLOBIN 10.4 g/dL (12.0-16.0); LYMPH # 3.3 (1.2-3.4); LYMPH % 45.3 % (22.0-35.0); MEAN CELL VOLUME 83.1 fl (80.0-105.0); MEAN CORPUSCULAR HEMOGLOBIN 27.1 pg (25.0-35.0); MEAN CORPUSCULAR HGB CONC 32.6 g/dl (31.0-37.0); MONO # 0.5 (0.1-0.6); MONO % 6.5 % (1.0-6.0); RBC 3.84 10^6/uL (3.5-6.1); RED CELL DISTRIBUTION WIDTH 14.6 % (11.5-14.5); WHITE BLOOD COUNT 7.2 10^3/uL (4.5-11.0)
[2018-12-22 18:09] LABS: VENOUS BLOOD GAS BASE EXCESS -3.2 mmol/L (0.0-2.0); VENOUS BLOOD GAS PO2 31 mm/Hg (30-55); VENOUS BLOOD PH 7.33 (7.32-7.43)
[2018-12-22 18:13] LABS: INR 1.21; PARTIAL THROMBOPLASTIN TIME 32.3 Seconds (26.9-38.3); PROTHROMBIN TIME 13.4 SECONDS (9.4-12.5)
[2018-12-22 18:14] LABS: ALT/SGPT 12 U/L (7-56); AST/SGOT 46 U/L (14-36); BLOOD UREA NITROGEN 16 mg/dL (7-21); CALCIUM 9.1 mg/dL (8.4-10.5); GFR NON-AFRICAN AMERICAN > 60; LIPASE 54 U/L (23-300)
[2018-12-22] MEDS ORDERED: Iohexol 350 MG/100 ML VIAL ONE (18:26)
[2018-12-22 19:26] LABS: PH,URINE 6.5 (4.7-8.0); URINE BILIRUBIN NEGATIVE (NEGATIVE); URINE BLOOD NEGATIVE (NEGATIVE); URINE GLUCOSE (UA) NEGATIVE (NEGATIVE); URINE LEUKOCYTE ESTERASE SMALL Leu/uL (NEGATIVE); URINE PROTEIN NEGATIVE mg/dL (<30 mg/dL); URINE UROBILINOGEN 0.2 E.U./dL (<1 E.U./dL)
[2018-12-22 19:29] LABS: URINE APPEARANCE CLEAR (CLEAR); URINE COLOR YELLOW (YELLOW)
[2018-12-23 07:36] VITALS: BP 126/59; PULSE 85; RESP 19; TEMP 98; O2SAT 97
--- NOTE | 2018-12-23 12:15 | CT ---
Date of service: 12/22/2018 PROCEDURE: CT Abdomen and Pelvis with contrast HISTORY: Right lower quadrant pain COMPARISON: There study available for comparison however correlation made with CT scan of the chest 01/08/2018 which image the upper abdomen. TECHNIQUE: Contrast dose: Radiation dose: Total exam DLP = 761.18 mGy-cm. This CT exam was performed using one or more of the following dose reduction techniques: Automated exposure control, adjustment of the mA and/or kV according to patient size, and/or use of iterative reconstruction technique. FINDINGS: LOWER THORAX: Mild passive-dependent type atelectasis both posterior lower lung mathur. Additionally, there are areas of ground-glass opacity in the both lung bases as well possibly due to some air trapping. No effusion or basilar pneumothorax. Heart mildly enlarged.. No significant pericardial effusion. Small hiatal hernia. LIVER: Liver exhibits normal size measuring nearly 18 cm in CC dimension. Mild diffuse fatty hepatic infiltration. No obvious hepatic mass collection or calcification. Portal and splenic veins are opacified.. GALLBLADDER AND BILE DUCTS: The gallbladder physiologically distended. No evidence of intraluminal gallbladder calculi. PANCREAS: Unremarkable. No gross lesion or ductal dilatation. SPLEEN: Unremarkable. ADRENALS: No adrenal lesions KIDNEYS AND URETERS: Kidneys demonstrate relatively symmetric nephrograms. No evidence of nephrolithiasis or hydronephrosis. No solid mass. VASCULATURE: Unremarkable. No aortic aneurysm. No aortic atherosclerotic calcification or mural plaque present. BOWEL: Evaluation of the bowel is somewhat limited due to the lack of oral contrast material. The stomach is partially distended with liquid food debris and air which in part may account for localized wall thickening of the gastric fundus however an invasive wall lesion should also be excluded... Visualized loops of small bowel exhibit normal contour and caliber. There is a moderate amount of stool seen throughout the colon.. There is also mild thickening of the rectal wall; rule out invasive wall lesion in this location APPENDIX: Normal appendix. The appendix is partially filled with hyperdense material and air. No evidence of acute appendicitis. PERITONEUM: Unremarkable. No free fluid. No free air. Small fat containing umbilical hernia. LYMPH NODES: Unremarkable. No enlarged lymph nodes. BLADDER: Urinary bladder appears physiologically distended with no evidence of intraluminal urinary bladder calculi. REPRODUCTIVE: Unremarkable as visualized BONES: There are non-specific sclerotic changes seen within the right aspect of the sacrum with a similar more discrete sclerotic focus in the left iliac bone. Findings are of uncertain etiology though sclerotic metastasis must be excluded. Consider follow-up of bone scan for further evaluation. Note also made of a very tiny sclerotic focus within the L2 segment. Chronic appearing anterior stature loss of the L4 segment more so on the right than left multilevel degenerative spondylosis of the lower thoracic and lumbar spine. There is also mild levoscoliosis centered at the L3-L4 level.. OTHER FINDINGS: None. IMPRESSION: There is wall thickening of the gastric fundus which could be due to incomplete distention however possibility of a gastritis or other intrinsic/invasive wall lesion including but not limited to gastric carcinoma not excluded. Slight thickening of the rectal wall; and infiltrative wall lesion in this location should be excluded as well. Mild fatty hepatic infiltration. There are sclerotic lesions seen within the right aspect of the sacrum and left iliac bone of uncertain etiology. Rule out sclerotic metastases. Follow-up bone scan recommended. Note this report was placed PA review folder for follow up. The case was also discussed with emergency room JOHN Tenorio at 12:10 p.m. with written down and read back verification.
--- NOTE | 2018-12-24 18:09 | US ---
HISTORY: Leg pain and swelling. Evaluate for DVT PHYSICIAN(S): Shola Rosa MD. TECHNIQUE: Duplex sonography and color-flow Doppler with graded compression were used to evaluate the deep venous systems of both lower extremities. The exam is very limited by body habitus and edema FINDINGS: The visualized deep venous systems of both lower extremities are sonographically normal and compressible. Normal wave forms and augmentation are seen. There is no sonographic evidence for deep venous thrombosis in the visualized segments of both lower extremities. IMPRESSION: No sonographic evidence for deep venous thrombosis in the visualized segments of both lower extremities. Very limited study.
== END 2018-12-23 07:35 | disposition home or self-care (01) ==
LOC: ED 17:02
DX: N39.0 Urinary tract infection, site not specified (principal); R10.9 Unspecified abdominal pain; I25.10 Atherosclerotic heart disease of native coronary artery without angina pectoris; I10 Essential (primary) hypertension; Z95.5 Presence of coronary angioplasty implant and graft; Z85.3 Personal history of malignant neoplasm of breast; Z79.02 Long term (current) use of antithrombotics/antiplatelets; Z79.82 Long term (current) use of aspirin
CPT/HCPCS: 74177; 80053; 81001; 82803; 83690; 85025; 85610; 85730; 86850; 86900; 87086; 93970; 99284; Q9967